=== PATIENT | male | born 1955 | race Caucasian/White ===

== ENCOUNTER 2016-07-24 07:14 | Emergency (ER) | payer SELFPAY ==
[~2016-07-24] VITALS: Ht 172.7 cm; Wt 67.7 kg
[2016-07-24 07:20] VITALS: BP 143/113; PULSE 82; RESP 20; TEMP 98.6; O2SAT 98
[2016-07-24] MEDS ORDERED: predniSONE 50 MG TAB PO ONE (08:00)
[2016-07-24 08:08] VITALS: BP 166/98; PULSE 74; RESP 20; O2SAT 99
[2016-07-24 08:10] VITALS: O2SAT 99
--- NOTE | 2016-07-24 08:11 | PD ---
HPI Chief Complaint: Cold / Flu Symptoms Time Seen by Provider: 07:56 Travel History International Travel<30 days: No Contact w/Intl Traveler<30days: No Traveled to known affect area: No History of Present Illness HPI 61-year-old male with history of previous smoking, presents to the ER today with 1 week history of cough, sore throat, shortness of breath. He denies any fevers, vomiting, abdominal pains, chest pains, or any other symptoms. He denies any leg swelling or recent travel. Modifying Factors: None Associated Signs & Symptoms: Cough, sore throat, shortness of breath Risk Factors: History of smoking PFSH Past Medical History Hx Anticoagulant Therapy: No Cardiovascular Problems: No Chemotherapy: No COPD: Yes (?) Cerebrovascular Accident: No Diabetes: No Diminished Hearing: No Respiratory: No Past Surgical History Abdominal Surgery: Yes (HERNIA) Hysterectomy: No Tonsillectomy: Yes Social History Alcohol Use: Yes (~3 X WEEKLY) Tobacco Use: No (QUIT 2010) Substance Use: No Allergies-Medications (Allergen,Severity, Reaction): Coded Allergies: No Known Allergies (Verified , 02/06/16) Reported Meds & Prescriptions Reported Meds & Active Scripts Active No Active Prescriptions or Reported Medications Review of Systems Except as stated in HPI: all other systems reviewed are Neg Physical Exam Narrative GENERAL: Well-nourished, well-developed elderly white male patient in mild respiratory distress. SKIN: Warm and dry. HEAD: Normocephalic. EYES: No scleral icterus. No injection or drainage. NECK: Supple, trachea midline. CARDIOVASCULAR: Regular rate and rhythm without murmurs, gallops, or rubs. RESPIRATORY: Breath sounds equal bilaterally. Mild accessory muscle use. GASTROINTESTINAL: Abdomen soft, non-tender, nondistended. MUSCULOSKELETAL: No cyanosis, or edema. BACK: Nontender without obvious deformity. No CVA tenderness. Data Data Last Documented VS Vital Signs Date Time Temp Pulse Resp B/P Pulse Ox O2 Delivery O2 Flow Rate FiO2 07/24/16 08:10 99 Room Air 07/24/16 08:10 74 20 07/24/16 08:08 166/98 07/24/16 07:20 98.6 Orders Influenzae A/B Antigen (07/24/16 07:56) Ecg Monitoring (07/24/16 07:56) Oximetry (07/24/16 07:56) Oxygen Administration (07/24/16 07:56) Chest, Single Ap (07/24/16 07:56) Albuterol-Ipratropium Neb (Duoneb Neb) (07/24/16 08:00) Prednisone (Deltasone) (07/24/16 08:00) MDM Medical Decision Making Medical Screen Exam Complete: Yes Emergency Medical Condition: Yes Medical Record Reviewed: Yes Interpretation(s) Last 24 hours Impressions Chest X-Ray 07/24/16 0756 Signed Impressions: Service Date/Time: Sunday, July 24, 2016 08:13 - CONCLUSION: No acute cardiopulmonary abnormality is identified. Background lung changes are suggestive of obstructive airways disease/emphysema. Luis M Talbert MD Differential Diagnosis Bronchitis versus COPD exacerbation versus pneumonia versus URI Narrative Course Chest x-ray did not show any signs of acute pneumonia or acute pulmonary processes. Patient was given prednisone and DuoNeb's in the ER. On reevaluation at 8:45 AM, he is feeling improved. At this point, he was asked to walk around the ER and states he is not having any significant dyspnea on exertion. I believe the patient does have some underlying bronchitis considering coughing with greenish phlegm and symptoms. My plan would be to treat him for bronchitis and have him follow-up with primary care physician as needed. Return for any worsening in symptoms as needed. The plan has been discussed with the patient he states understanding. Diagnosis Primary Impression: ACUTE BRONCHITIS, UNSPECIFIED Med/Other Pt SpecificInfo: Prescription(s) given Scripts Albuterol 6.7 GM Inh (Proventil Hfa 6.7 GM Inh)90 Mcg/Act Aer2 Puff INH Q4-6H PRN (SHORTNESS OF BREATH) #1 INHALER Ref 0 Prov:Ciara Flores MD 07/24/16 Azithromycin (Zithromax Z-[place])250 Mg [id number] Mg PO DIRECTED #1 DSPK Ref 0 500 MG (2 tabs) day 1, then 1 tab days 2-5. Prov:Ciara Flores MD 07/24/16 Prednisone 50 Mg Tab50 Mg PO DAILY #5 TAB Ref 0 Prov:Ciara Flores MD 07/24/16 Disposition: 01 DISCHARGE HOME Condition: Stable Ciara Flores MD Jul 24, 2016 08:11
[2016-07-24] MEDS: RESP: ALBUTEROL 2.5 MG/IPRATROPIUM 0.5 MG NEB (SCH) INH (08:14)
--- NOTE | 2016-07-24 08:31 | RADHPO ---
EXAM DATE/TIME: 07/24/2016 08:13 [facility] COMPARISON: CHEST SINGLE AP, August 05, 2015, 10:16. INDICATIONS : Cough, short of breath. MEDICAL HISTORY : None. SURGICAL HISTORY : None. ENCOUNTER: Initial ACUITY: 1 week PAIN SCORE: 0/10 LOCATION: Bilateral chest FINDINGS: AP views of the chest demonstrate a normal-sized cardiac silhouette. Lungs are mildly hyperexpanded w ith lucency in the upper lung zones and interstitial prominence at the lung bases. No effusion, conso lidation, or pneumothorax is identified. Bones and soft tissues demonstrate no acute finding. CONCLUSION: No acute cardiopulmonary abnormality is identified. Background lung changes are suggestive of obstruc tive airways disease/emphysema. Luis M Talbert MD on July 24, 2016 at 8:23 Board Certified Radiologist. This report was verified electronically.
[2016-07-24] MEDS ORDERED: ZITHTAB PO (08:53)
[2016-07-24] MEDS ORDERED: PRED50 PO (08:53)
[2016-07-24] MEDS ORDERED: ALBU6.7H INH (08:53)
[2016-07-24 08:54] VITALS: BP 162/93; PULSE 71; RESP 20; O2SAT 97
== END 2016-07-24 09:02 | disposition home or self-care (01) ==
LOC: PHED 07:14
DX: J44.0 Chronic obstructive pulmonary disease with (acute) lower respiratory infection (principal); J20.9 Acute bronchitis, unspecified; Z87.891 Personal history of nicotine dependence
CPT/HCPCS: 71010; 87804; 94640; 94664; 99283; J7512

== ENCOUNTER 2016-08-02 12:57 | Emergency (ER) | payer SELFPAY ==
[~2016-08-02] VITALS: Ht 172.7 cm; Wt 67.7 kg
[~2016-08-02 12:57] MED LIST: ALBU6.7H INH; PRED50 PO; ZITHTAB PO
[2016-08-02 13:13] VITALS: BP 124/82; PULSE 81; RESP 16; TEMP 98.6; O2SAT 96
[2016-08-02] MEDS ORDERED: PROPARACAINE HCL 0.5% OPHT SOLN 15 ML BTL RIGHT EYE ONE (14:00)
[2016-08-02] MEDS ORDERED: TETANUS/DIPHTHERIA TOXOID ADULT 0.5 ML VIAL IM ONE (14:00)
--- NOTE | 2016-08-02 14:02 | PD ---
HPI Chief Complaint: Eye Problems/Injury Time Seen by Provider: 13:59 Travel History International Travel<30 days: No Contact w/Intl Traveler<30days: No Traveled to known affect area: No History of Present Illness HPI Patient is a 61-year-old male presenting with chief complaint of metal foreign body in the right eye. He states at 8 AM this morning he was grinding metal and wearing glasses but not complete eye protection when some pieces flew into his eye. He says it is mildly irritated and has progressively gotten worse. He has mild tearing. He does not feel his vision is affected. He denies any pain behind the eye or headache. He denies any photophobia. He states that the foreign body sensation is lateral and mostly when he closes his eyes or blinks. He denies any symptoms in the right eye. Last tetanus vaccine greater than 5 years. He does not wear contact lenses. PFSH Past Medical History Medical History: Denies Significant Hx Hx Anticoagulant Therapy: No Cardiovascular Problems: No Chemotherapy: No COPD: Yes (?) Cerebrovascular Accident: No Diabetes: No Diminished Hearing: No Respiratory: No Influenza Vaccination: No Past Surgical History Abdominal Surgery: Yes (HERNIA) Hysterectomy: No Tonsillectomy: Yes Social History Alcohol Use: Yes (~3 X WEEKLY) Tobacco Use: No (QUIT 2010) Substance Use: No Allergies-Medications (Allergen,Severity, Reaction): Coded Allergies: No Known Allergies (Verified , 08/02/16) Reported Meds & Prescriptions Reported Meds & Active Scripts Active Ciprofloxacin Opth Drops (Ciprofloxacin HCl) 0.3% Soln 2 Drop RIGHT EYE Q4H 1-2 drops in affected eye (S) every 2 hours while awake for 2 days and then every 4 hours for 5 days. Review of Systems Eyes: Positive: Drainage, Foreign Body Sensation, Pain, Tearing, No: Diploplia , Blurred Vision, Photophobia, Redness, Blind Spots, Visual changes, Blindness HENT: No: Headaches Physical Exam Narrative GENERAL: Well-developed and well-nourished adult male in no acute distress. SKIN: Warm and dry. Good turgor without tenting. HEAD: Normocephalic and atraumatic. EYES: PERRL bilaterally, 5mm. EOMI bilaterally. There is a very small superficial foreign body present at the 9 o'clock position just outside the pupil. There is fluorescein stain uptake at this point, negative Vivi sign. No hyphema or hypopyon. Very minimal clear tearing present. No photophobia.eyelid eversion reveals no foreign bodies. I was able to remove the foreign object with cotton swab. No injection or icterus present. No proptosis. Lids without edema or erythema. Visual breen normal to confrontation. ENT: Buccal mucosa pink and moist. Oropharynx free of erythema, tonsillar hypertrophy, masses, swelling, asymmetry and exudates. Uvula midline and airway patent. NECK: Supple, no midline tenderness, crepitus or step-offs. Trachea midline, no JVD. No cervical or facial lymphadenopathy. CARDIOVASCULAR: Regular rate and rhythm without murmurs, rubs, clicks or gallops. RESPIRATORY: Clear to auscultation bilaterally with symmetrical rise and fall, no distress or use of accessory muscles. NEUROLOGIC: CN II-XII grossly intact. Awake and alert. Motor grossly within normal limits. Normal speech. PSYCHIATRIC: Appropriate mood and affect; insight and judgment normal. Data Data Last Documented VS Vital Signs Date Time Temp Pulse Resp B/P Pulse Ox O2 Delivery O2 Flow Rate FiO2 08/02/16 13:13 98.6 81 16 124/82 96 Orders Proparacaine 0.5% Opth Soln (Alcaine 0.5 (08/02/16 14:00) Tetanus/Diphtheria Tox Adult (Tetanus/Di (08/02/16 14:00) Ct Facial Bones W/O Iv Cont (08/02/16 ) Mandatory Outpatient Referral (08/02/16 14:14) [facility] Medical Decision Making Medical Screen Exam Complete: Yes Emergency Medical Condition: Yes Interpretation(s) Last [address] 08/02/16 0000 Signed Impressions: Service Date/Time: August 14:17 - CONCLUSION: 1. No metallic foreign body identified. 2. Minimal maxillary sinus disease. . Abel Banuelos MD Differential Diagnosis I foreign body versus corneal abrasion versus corneal ulceration versus globe rupture Narrative Course Patient is a 61-year-old male with vision intact after having a few pieces of metal flecks fly into his eye while grinding this morning. Vision is 20/20 in the affected eye and visual breen are normal to confrontation. No evidence of globe rupture on exam. Very minimal symptoms. There is a small foreign body present which was removed easily with cotton swab. Tetanus vaccine is updated today. Given this was high speed inner diameter grinder tool ordered CT which shows no metallic foreign body, minimal maxillary sinusitis present. Patient will be given Cipro ophthalmic and admitted to a referral for ophthalmology was placed explained to the patient.See discharge paperwork for further instructions. The plan was discussed with the patient who acknowledged their understanding and agreement. Reinforced the follow-up with primary care is critically important. Patient instructed on emergent conditions that should prompt return to ED. Diagnosis Primary Impression: Corneal abrasion Qualified Code: S05.01XA - Corneal abrasion, right, initial encounter Additional Impression: Foreign body of right eye Qualified Code: T15.91XA - Foreign body of right eye, initial encounter Patient Instructions: Corneal Abrasion (ED), General Instructions Additional Instructions: Very important to fill antibiotic eyedrops and begin using it immediately Do not place any OTC drops or ointments in the eyes Wear eye protection when grinding or hammering Reportedly follow-up with low pressure boiler operator tomorrow, mandatory referral issued as discussed Failure to take medication or follow-up appropriately could result in permanent vision loss Return to the ED for any acute worsening of symptoms Med/Other Pt SpecificInfo: Prescription(s) given Scripts Ciprofloxacin Opth Drops 0.3% Soln2 Drop RIGHT EYE Q4H #1 BOTTLE 1-2 drops in affected eye (S) every 2 hours while awake for 2 days and then every 4 hours for 5 days. Prov:Mukul Hatfield MD 08/02/16 Disposition: 01 DISCHARGE HOME Condition: Stable Luis M Bond III Aug 02, 2016 14:02
[2016-08-02] MEDS ORDERED: CIPR0.3S2 RIGHT EYE (14:15)
--- NOTE | 2016-08-02 14:45 | RADHPO ---
EXAM DATE/TIME: 08/02/2016 14:17 [facility] COMPARISON: No previous studies available for comparison. INDICATIONS : Evaluate for metal foreign object in right eye. Pt was working with metal at work this morning and f elt something go into his right eye. RADIATION DOSE: 29.75 CTDIvol (mGy) MEDICAL HISTORY : Chronic obstructive pulmonary disease. SURGICAL HISTORY : None. ENCOUNTER: Initial ACUITY: 1 day PAIN SCORE: 5/10 LOCATION: Right eye TECHNIQUE: Volumetric scanning of the facial bones was performed. Using automated exposure control and adjustme nt of the mA and/or kV according to patient size, radiation dose was kept as low as reasonably achiev able to obtain optimal diagnostic quality images. FINDINGS: ORBITS: The orbital and infraorbital osseous structures are intact. The retroconal structures have a normal configuration. No radiopaque foreign bodies are seen. NASAL BONE: The nasal bone and maxillary spine are intact ZYGOMATIC ARCHES: Symmetric without evidence of fracture. SINUSES: Minimal mucosal thickening of the maxillary sinuses. NASAL CAVITY: The nasal septum is intact and midline. The lacrimal ducts are intact. SOFT TISSUES: No radiopaque foreign bodies seen. No soft-tissue swelling is seen. INTRACRANIAL: No intracranial air seen. CRIBIFORM PLATE: Grossly intact. CONCLUSION: 1. No metallic foreign body identified. 2. Minimal maxillary sinus disease. . Abel Banuelos MD on August 02, 2016 at 14:41 Board Certified Radiologist. This report was verified electronically.
== END 2016-08-02 15:25 | disposition home or self-care (01) ==
LOC: PHEFT 12:57
DX: T15.01XA Foreign body in cornea, right eye, initial encounter (principal); Z23 Encounter for immunization
CPT/HCPCS: 65220; 70486; 90471; 90714